=== PATIENT | male | born 1995 | race Caucasian/White ===

== ENCOUNTER 2018-03-18 20:11 | Emergency (ER) | payer OTHER ==
--- NOTE | 2018-03-18 20:45 | EDPHY ---
H & P Time Seen by Provider: 03/18/18 20:26 HPI/ROS: Chief complaint. Cough HPI. A 22-year-old male with cough for 6 weeks. He has been seen previously in urgent care for this recently and had a normal chest x-ray with and was prescribed prednisone and Z-Vicente without significant relief. Cough is nonproductive. He has not had a fever. He has had persistent right posterior back pain that is worse with breathing as well as movement. He is not short of breath. History of asthma. Has used his inhaler though at really has not helped much. No abdominal pain. ROS 10 systems were reviewed and negative with the exception of the elements mentioned in the history of present illness Past Medical/Surgical History: Benign brain tumor and asthma Social History: Single, nonsmoker, no alcohol Smoking Status: Former smoker Physical Exam: General Appearance: Alert well-developed male mild distress vital signs are stable Eyes: Pupils equal and round no pallor or injection. ENT, Mouth: Mucous membranes are moist. Respiratory: There are no retractions, lungs are clear to auscultation. Cardiovascular: Regular rate and rhythm. Gastrointestinal: Abdomen is soft and nontender, no masses, bowel sounds normal. Neurological: Awake and alert, sensory and motor exams grossly normal. Skin: Warm and dry, no rashes. Musculoskeletal: Neck is supple nontender. Extremities symmetrical, full range of motion. Psychiatric: Patient is oriented X 3, there is no agitation. Constitutional: Initial Vital Signs Temperature (C) 36.6 C 03/18/18 20:15 Heart Rate 90 03/18/18 20:15 Respiratory Rate 18 03/18/18 20:15 Blood Pressure 123/67 H 03/18/18 20:15 O2 Sat (%) 96 03/18/18 20:15 O2 Delivery Mode Room Air Allergies/Adverse Reactions: amoxicillin Allergy (Verified 03/18/18 20:15) penicillin G Allergy (Verified 03/18/18 20:15) Home Medications: Medication Instructions Recorded NK [No Known Home Meds] 03/18/18 Medical Decision Making Procedures: DuoNeb updraft ED Course/Re-evaluation: Re-evaluation 9:40 p.m.. Patient is improved at for his DuoNeb updraft. He is conversational and not short of breath. Patient and I discussed treatment plan including criteria for return importance of follow-up and further evaluation. He expresses understanding and agreement Differential Diagnosis: Likely this is viral syndrome. Patient does have a history of asthma. There is no evidence for pneumonia or pulmonary embolus. - Data Points Laboratory Results: Laboratory Results 03/18/18 21:00 03/18/18 21:00 03/18/18 03/18/18 03/18/18 21:00 21:00 21:00 WBC 6.95 10^3/uL 10^3/uL (3.80-9.50) RBC 4.97 10^6/uL 10^6/uL (4.40-6.38) Hgb 14.4 g/dL g/dL (13.7-17.5) Hct 42.0 % % (40.0-51.0) MCV 84.5 fL fL (81.5-99.8) MCH 29.0 pg pg (27.9-34.1) MCHC 34.3 g/dL g/dL (32.4-36.7) RDW 12.4 % % (11.5-15.2) Plt Count 283 10^3/uL 10^3/uL (150-400) MPV 9.7 fL fL (8.7-11.7) Neut % (Auto) 41.8 % % (39.3-74.2) Lymph % (Auto) 39.3 % % (15.0-45.0) [place] % (Auto) 8.8 % % (4.5-13.0) Eos % (Auto) 9.1 % H % (0.6-7.6) Baso % (Auto) 0.7 % % (0.3-1.7) Nucleat RBC Rel Count 0.0 % % (0.0-0.2) Absolute Neuts (auto) 2.91 10^3/uL 10^3/uL (1.70-6.50) Absolute Lymphs (auto) 2.73 10^3/uL 10^3/uL (1.00-3.00) Absolute Monos (auto) 0.61 10^3/uL 10^3/uL (0.30-0.80) Absolute Eos (auto) 0.63 10^3/uL H 10^3/uL (0.03-0.40) Absolute Basos (auto) 0.05 10^3/uL 10^3/uL (0.02-0.10) Absolute Nucleated RBC 0.00 10^3/uL 10^3/uL (0-0.01) Immature Gran % 0.3 % % (0.0-1.1) Immature Gran # 0.02 10^3/uL 10^3/uL (0.00-0.10) D-Dimer 0.35 ug/mLFEU ug/mLFEU (0.00-0.50) Sodium 135 mEq/L mEq/L (135-145) Potassium 3.7 mEq/L mEq/L (3.5-5.2) Chloride 104 mEq/L mEq/L (97-110) Carbon Dioxide 23 mEq/l mEq/l (22-31) Anion Gap 8 mEq/L mEq/L (6-14) BUN 17 mg/dL mg/dL (7-23) Creatinine 0.8 mg/dL mg/dL (0.7-1.3) Estimated GFR > 60 Glucose 96 mg/dL mg/dL (70-100) Calcium 9.6 mg/dL mg/dL (8.5-10.4) Medications Given: Discontinued Medications Albuterol/Ipratropium (Duoneb) 3 ml IH EDNOW ONE Stop: 03/18/18 20:54 Last Admin: 03/18/18 20:58 Dose: 3 ml Departure - Departure Disposition: Home, Routine, Self-Care Clinical Impression: Acute bronchitis Qualifiers: Bronchitis organism: unspecified organism Qualified Code(s): J20.9 - Acute bronchitis, unspecified Condition: Good Instructions: Acute Bronchitis (ED) Additional Instructions: Use your inhaler. Drink plenty of fluids and stay hydrated. Use a vaporizer if you have one. Return for worsening symptoms. Follow-up with pulmonary for continuing symptoms Referrals: NONE *PRIMARY CARE P,. [Primary Care Provider] - As per Instructions Justin Bazan MD [Medical Doctor] - 5-7 days, if not improved
[2018-03-18] MEDS ORDERED: IPRATROPIUM/ALBUTEROL 3 ML DEYVIAL IH ONE (20:53)
[2018-03-18 21:13] LABS: PLATELET COUNT 283 10^3/uL (150-400)
[2018-03-18 22:13] VITALS: BP 93/67
== END 2018-03-18 22:13 | disposition home or self-care (01) ==
DX: J20.9 Acute bronchitis, unspecified (principal); J45.909 Unspecified asthma, uncomplicated; Z87.891 Personal history of nicotine dependence

== ENCOUNTER 2018-07-20 14:53 | Emergency (ER) | payer OTHER ==
--- NOTE | 2018-07-20 14:57 | EDPHY ---
H & P Time Seen by Provider: 07/20/18 14:56 HPI/ROS: HPI: This is a 22-year-old male who presents with Chief Complaint: chronic cough x 4 months seen here previously for same Location: Chest Quality: Chronic dry cough Duration: 4 months Signs and Symptoms: no shortness of breath at rest, no shortness of breath on exertion, + nonproductive cough, no chest pain, no palpitations, no lower extremity edema, no wheezing, no orthopnea, no paroxysmal nocturnal dyspnea, no fever, no injury/trauma, no hemoptysis, no carpal pedal spasms Timing: Intermittent episodes, worse at night Severity: [id number] Context: Patient is a tobacco user, marijuana user, nicotine vaporizer user presents with complaints of chronic dry cough for the last 4 months. He reports that the cough is worse at night. Denies shortness of breath, wheezing , fever, upper respiratory symptoms. Seen in this emergency room in March with negative D-dimer. Denies GERD, indigestion, nausea, vomiting. March treated for course of bronchitis with Z-Vicente and steroid taper. Denies postnasal drip. Modifying Factors: Comment: ROS: A comprehensive 10 system review of systems is otherwise negative aside from elements mentioned in the history of present illness. MEDICAL/SURGICAL/SOCIAL HISTORY: Medical history: Generally healthy. Does not take any regular medications. Surgical history: Denies Social history: Tobacco and marijuana user. Student at [employer] CONSTITUTIONAL: Extremely well-appearing young adult white male, awake and alert, no obvious distress HEENT: Atraumatic and normocephalic, PERRL, EOMI. Nares patent; no rhinorrhea; no nasal mucosal edema. Tympanic membranes clear. Oropharynx clear, no exudate and moist pink mucosa. Airway patent. No lymphadenopathy. No meningismus. Cardiovascular: Normal S1/S2, regular rate, regular rhythm, without murmur rub or gallop. PULMONARY/CHEST: Symmetrical and nontender. Clear to auscultation bilaterally. Good air movement. No accessory muscle usage. ABDOMEN: Soft, nondistended, nontender, no rebound, no guarding, no peritoneal signs, no masses or organomegaly. No CVAT. EXTREMITIES: 2/2 pulses, strength 5/5, no deformities, no clubbing, no cyanosis or edema. NEUROLOGICAL: no focal neuro deficits. GCS 15. SKIN: Warm and dry, no erythema. no rash. Good capillary refill. Source: Patient Exam Limitations: No limitations - Medical/Surgical History Hx Asthma: No Hx Chronic Respiratory Disease: No Hx Diabetes: No Hx Cardiac Disease: No Hx Renal Disease: No Hx Cirrhosis: No Hx Alcoholism: No Hx HIV/AIDS: No Hx Splenectomy or Spleen Trauma: No Other PMH: hx: bengin brain tumor - Social History Smoking Status: Former smoker Constitutional: Initial Vital Signs Temperature (C) 36.6 C 07/20/18 15:00 Heart Rate 74 07/20/18 15:00 Respiratory Rate 17 07/20/18 15:00 Blood Pressure 123/70 H 07/20/18 15:00 O2 Sat (%) 98 07/20/18 15:00 O2 Delivery Mode Room Air Allergies/Adverse Reactions: amoxicillin Allergy (Verified 07/20/18 14:59) penicillin G Allergy (Verified 07/20/18 14:59) Home Medications: Medication Instructions Recorded Albuterol Sulfate [Proair Hfa] 1 - 2 puffs IH Q4 PRN #1 [email or web address] 07/20/18 Medical Decision Making - Diagnostics Imaging Results: Imaging Impressions Chest X-Ray 07/20/18 15:12 Impression: No acute cardiopulmonary process. ED Course/Re-evaluation: Vital signs reviewed and stable upon arrival. No systemic signs. Chest x-ray my read shows no opacity, no effusion, no pneumothorax, no widened mediastinum. Suspect this is reactive airway disease secondary to marijuana and vaporizer nicotine use. No signs of acute exacerbation. Given albuterol inhaler and advised tobacco/marijuana cessation. This patient was seen under the supervision of my secondary supervising physician. I evaluated and cared for this patient independently. Differential Diagnosis: Shortness of breath including but not limited to pulmonary infectious process, COPD, asthma, pulmonary embolus and congestive heart failure. Departure - Departure Disposition: Home, Routine, Self-Care Clinical Impression: Nicotine vapor product user RAD (reactive airway disease) Qualifiers: Asthma severity: mild Asthma persistence: intermittent Asthma complication type : uncomplicated Qualified Code(s): J45.20 - Mild intermittent asthma, uncomplicated Condition: Good Instructions: Albuterol (By breathing), Reactive Airways Disease (ED) Additional Instructions: Please refrain from using all tobacco, marijuana, vaporizer products. Consume a minimum of 8-10 glasses of water or electrolyte fluid replacement drinks that include Gatorade, Powerade, Pedialyte. Take Mucinex every 6 hr as needed [id number] to help loosen mucus secretions. Use albuterol inhaler every 4-6 hours as needed for shortness of breath, wheezing. Referrals: [facility],. [Clinic] - As per Instructions Prescriptions: Albuterol Sulfate [Proair Hfa] 1 - 2 puffs IH Q4 PRN #1 [email or web address] PRN Reason: Short Of Breath/Dyspnea
[2018-07-20 15:03] VITALS: BP 123/70
== END 2018-07-20 15:43 | disposition home or self-care (01) ==
DX: J45.20 Mild intermittent asthma, uncomplicated (principal); F17.200 Nicotine dependence, unspecified, uncomplicated